=== PATIENT | male | born 1955 | race Asian ===

== ENCOUNTER 2016-08-06 20:59 | Emergency (ER) | payer OTHER ==
[2016-08-06 21:52] LABS: ABSOLUTE NEUTROPHIL COUNT 4.1 K/mm3 (1.8-7.7); BASO % 0.5 % (0.2-1.0); EOS # 0.1 (0.0-0.5); EOS % 1.3 % (0.9-2.9); HEMATOCRIT 41.2 % (32.0-52.0); HEMOGLOBIN 13.4 gm/l (14.0-18.0); IMM NEUT% 0.2 % (0-1); LYMPH # 1.6 (1.0-4.8); LYMPH % 25.9 % (15-45); MEAN CORPUSCULAR HEMOGLOBIN 29.9 pg (27.0-31.0); MEAN CORPUSCULAR HGB CONC 32.5 g/dl (33.0-37.0); MEAN PLATELET VOLUME 9.6 fl (7.4-10.4); MONO # 0.4 (0.0-0.8); MONO % 6.8 % (4-12); NEUT % 65.3 % (43-75); PLATELET COUNT 226 K/mm3 (130-400); RED CELL DISTRIBUTION WIDTH 11.6 % (11.5-14.5)
[2016-08-06] MEDS ORDERED: ASPIRIN CHEWTAB 81 MG TABLET ONE (22:04)
[2016-08-06 22:10] LABS: ALB/GLOB RATIO 1.2 (>1.0); ALBUMIN 4.3 gm/dL (3.5-5.7); CALCIUM 9.8 mg/dL (8.6-10.3)
[2016-08-06 23:05] LABS: PH,URINE 6.5 (5.0-8.0); SPECIFIC GRAVITY 1.015 (1.001-1.030); URINE BILIRUBIN NEGATIVE (NEGATIVE); URINE BLOOD NEGATIVE (NEGATIVE); URINE GLUCOSE (UA) NEGATIVE (NEGATIVE); URINE LEUKOCYTE ESTERASE NEGATIVE (NEGATIVE); URINE NITRITE NEGATIVE (NEGATIVE); URINE PROTEIN NEGATIVE (NEGATIVE); URINE UROBILINOGEN NORMAL (0-1 mg/dl)
[2016-08-06 23:09] LABS: URINE APPEARANCE CLEAR; URINE COLOR LIGHT YELLOW
--- NOTE | 2016-08-07 08:03 | RAD ---
History: Dyspnea. Comparison: 10/23/2015. Technique: 2 views Findings: There is evidence of prior median sternotomy. The heart size is appropriate. No focal infiltrate, effusion or pneumothorax is visualized. The hilar and mediastinal structures are intact. Impression: 1. Prior median sternotomy. 2. No active intrathoracic process.
== END 2016-08-06 23:49 | disposition home or self-care (01) ==
LOC: ED 20:59
DX: R07.9 Chest pain, unspecified (principal); I10 Essential (primary) hypertension; G70.00 Myasthenia gravis without (acute) exacerbation; Z79.82 Long term (current) use of aspirin
CPT/HCPCS: 83690; 85025; 80053; 81003; 84484; 71020; 99284 ×2; 93005; A9270